=== PATIENT | female | born 1985 | race Caucasian/White ===

== ENCOUNTER 2017-09-26 08:20 | Observation (INO) | payer OTHER | END 2017-09-26 10:15 | disposition home or self-care (01) | LOC: SPU 08:20 | PROVIDERS: ADMIT Specialist; ATTEND Specialist | DX: O26.892 Other specified pregnancy related conditions, second trimester (principal); R10.9 Unspecified abdominal pain; Z3A.22 22 weeks gestation of pregnancy | CPT/HCPCS: 81002; G0378 ==